=== PATIENT | male | born 1995 | race Asian ===

== ENCOUNTER 2021-04-26 16:49 | Outpatient (CLI) | payer OTHER ==
[2021-04-26 17:37] LABS: PLATELET COUNT 220 K/uL (142-355)
[2021-04-26 18:29] LABS: POTASSIUM 3.5 mmol/L (3.6-5.2)
== END 2021-04-26 19:11 | disposition home or self-care (01) ==
LOC: LABW 16:49
PROVIDERS: ATTEND Nurse Practitioner Family
DX: R80.9 Proteinuria, unspecified (principal)
CPT/HCPCS: 36415; 80053; 85027

== ENCOUNTER 2021-10-09 13:44 | Emergency (ER) | payer OTHER ==
[~2021-10-09] VITALS: Ht 190.5 cm; Wt 165.1 kg
[2021-10-09 13:52] VITALS: BP 151/79; TEMP 97.5
== END 2021-10-09 14:50 | disposition home or self-care (01) ==
LOC: ED 13:44
DX: S93.692A Other sprain of left foot, initial encounter (principal); S92.355A Nondisplaced fracture of fifth metatarsal bone, left foot, initial encounter for closed fracture; X50.1XXA Overexertion from prolonged static or awkward postures, initial encounter; Y92.89 Other specified places as the place of occurrence of the external cause
CPT/HCPCS: 99282